=== PATIENT | male | born 1970 | race Caucasian/White ===

== ENCOUNTER 2017-07-04 18:29 | Emergency (ER) | payer OTHER ==
[~2017-07-04] VITALS: Ht 175.3 cm; Wt 136.4 kg
[~2017-07-04 18:29] MED LIST: ALDACTAZIDE 25/1 TAB PO; AMOXICILLIN 50500 MG PO; APRESOLINE 25MG25 MG PO; ASPIRIN 81M81 MG/TA2 PO; ASPIRIN E.C. 8181 MG PO; ATENOLOL50 MG PO; BYSTOLIC10 MG PO; COREG 6.256.25 MG/TA PO; DYRENIUM 50MG C50 MG PO; FIORICET 325 MG1 TAB PO; FLEXERIL 1010 MG/TAB PO; HCTZ; HCTZ 25MG TAB25 MG PO; LIPITOR 80MG80 MG PO; LISINOPRIL10 MG PO; LORTAB 5/500 501 TAB PO; MAXZIDE-25MG TA1 TAB PO; MOTRIN 800800 MG/TAB PO; NAPROSYN500 MG PO; NORCO 325 MG-51 TAB PO; NORCO 325 MG-7.1 TAB PO; NORMODYNE100 MG PO; NORVASC 10MG10 MG PO; PERCOCET 325 MG1 TA2 PO; PHENERGAN 25 TA25 MG PO; PLAVIX 75MG TAB75 MG PO; PRAVACHOL 40MG40 MG PO; PRAVASTATIN20 MG PO; PRINIVIL40 MG PO; TENORMIN 5050 MG/TAB PO; TENORMIN100 MG PO; TRANDATE 100MG100 MG PO; TRIAMTERENE AND1 TAB PO; ULTRAM 50MG TAB50 MG PO; ZESTRIL 20MG TA20 MG PO; ZESTRIL40 MG PO; ZOFRAN8 MG PO
[2017-07-04 18:34] VITALS: TEMP 97.8
[2017-07-04 20:03] VITALS: BP 173/98; PULSE 68
== END 2017-07-04 20:53 | disposition home or self-care (01) ==
LOC: COL.ER 18:29
DX: I10 Essential (primary) hypertension (principal); F17.220 Nicotine dependence, chewing tobacco, uncomplicated; E66.9 Obesity, unspecified; Z68.41 Body mass index [BMI] 40.0-44.9, adult; Z86.73 Personal history of transient ischemic attack (TIA), and cerebral infarction without residual deficits; Z79.82 Long term (current) use of aspirin

== ENCOUNTER 2018-10-09 11:44 | Emergency (ER) | payer SELFPAY ==
[~2018-10-09] VITALS: Ht 175.3 cm; Wt 122.7 kg
[2018-10-09 11:48] VITALS: TEMP 98.9
[2018-10-09 12:17] LABS: HEMATOCRIT 49.1 % (42.0-52.0); HEMOGLOBIN 16.8 g/dl (13.5-18.0); MEAN CELL VOLUME 91 fl (80.0-100.0); MEAN CORPUSCULAR HEMOGLOBIN 31 pg (27.0-31.0); MEAN CORPUSCULAR HGB CONC 34 g/dl (33.0-37.0); MEAN PLATELET VOLUME 10.7 fl (7.4-10.4); PLATELET COUNT 261 K/mm3 (130-400); RED BLOOD COUNT 5.42 M/mm3 (4.20-5.60); REDCELL DISTRIBUTION WIDTH-CV 13.3 % (11.5-14.5)
[2018-10-09] MEDS ORDERED: LIPITOR 80MG80 MG PO (12:17)
[2018-10-09] MEDS ORDERED: PRINZIDE 12.5 M1 TA1 PO (12:17)
[2018-10-09] MEDS ORDERED: BYSTOLIC10 MG PO (12:18)
[2018-10-09 12:23] LABS: ALBUMIN 4.2 gm/dL (3.5-5.0); BILIRUBIN,TOTAL 1.7 mg/dL (0.0-1.0); CALCIUM 9.4 mg/dL (8.4-10.2); CREATININE, serum 1.43 mg/dL (0.66-1.25); POTASSIUM 4.2 mmol/L (3.4-5.0); TOTAL PROTEIN 7.5 gm/dL (6.4-8.2)
[2018-10-09 12:27] LABS: LYMPHOCYTE 6 % (20.0-51.0); NEUTROPHILS 92 % (42.0-75.2); PLATELET ESTIMATE NORMAL (NORMAL)
[2018-10-09] MEDS ORDERED: PHENERGAN 25 TA25 MG PO (13:18)
[2018-10-09 13:45] VITALS: BP 180/112; PULSE 68
== END 2018-10-09 13:52 | disposition home or self-care (01) ==
LOC: COL.ER 11:44
PROVIDERS: Emergency Medicine
DX: K52.9 Noninfective gastroenteritis and colitis, unspecified (principal); I10 Essential (primary) hypertension; Z79.02 Long term (current) use of antithrombotics/antiplatelets; Z79.82 Long term (current) use of aspirin
CPT/HCPCS: J0780; J7030

== ENCOUNTER 2019-02-06 11:57 | Inpatient (IN) | payer SELFPAY ==
[2019-02-06] VITALS (448 sets, daily range): BP systolic 144–186; BP diastolic 97–111; PULSE 73–82; TEMP 98.8–99; O2SAT 82–100
[~2019-02-06] VITALS: Ht 175.3 cm; Wt 128.3 kg
[~2019-02-06 11:57] MED LIST changes: +PRINZIDE 12.5 M1 TA1 PO
[2019-02-06 12:34] LABS: ALBUMIN 3.9 gm/dL (3.5-5.0); BILIRUBIN,TOTAL 1.7 mg/dL (0.0-1.0); CALCIUM 9.2 mg/dL (8.4-10.2); CREATININE, serum 1.48 (0.66-1.25); POTASSIUM 3.6 mmol/L (3.4-5.0); TOTAL PROTEIN 7.1 gm/dL (6.4-8.2)
[2019-02-06 12:47] LABS: INR 1.2 (0.8-3.0); PROTHROMBIN TIME 13.8 SECONDS (9.7-12.8)
[2019-02-06 12:48] LABS: TROPONIN-I 0.062 ng/mL (0.000-0.035)
[2019-02-06 12:49] LABS: BASO % 0.1 % (0.0-2.0); EOS # 0.1 (0.0-0.7); GRAN # 6.4 (1.4-6.5); GRAN % 80.2 % (42.2-75.2); HEMOGLOBIN 14.8 g/dl (13.5-18.0); LYMPH # 0.9 (1.2-3.4); LYMPH % 10.7 % (20.0-51.0); MEAN CELL VOLUME 88 fl (80.0-100.0); MEAN CORPUSCULAR HEMOGLOBIN 31 pg (27.0-31.0); MEAN CORPUSCULAR HGB CONC 35 g/dl (33.0-37.0); MEAN PLATELET VOLUME 10.2 fl (7.4-10.4); MONO # 0.6 (0.1-0.6); MONO % 7.6 % (1.7-9.3); PLATELET COUNT 230 K/mm3 (130-400); RED BLOOD COUNT 4.75 M/mm3 (4.20-5.60); REDCELL DISTRIBUTION WIDTH-CV 13.4 % (11.5-14.5)
[2019-02-06] MEDS ORDERED: PLAVIX 75MG TAB75 MG PO (16:01)
--- NOTE | 2019-02-06 16:29 | NUR ---
Report received from Deloris DENNEY and pt brought to ICU room 3 at 1550. Pt moved over to bed and placed on monitor. TPA and Cardene currently infusing. Pt A/O. Denies any pain. Bleeding noted from oral cavity. Pt coughed per ER report while in CT and began bleeding. Dr Leslie notified. No concerns at this time, will continue to follow.
--- NOTE | 2019-02-06 16:29 | NUR ---
Dr Ruiz at bedside at this time.
--- NOTE | 2019-02-06 16:53 | NUR ---
Dr Leslie in to see pt at this time.
--- NOTE | 2019-02-06 17:58 | NUR ---
Pt resting at this time. Had soft tray for supper and tolerated well. Will continue to follow.
--- NOTE | 2019-02-06 18:40 | NUR ---
Bedside report received from Huong DENNEY. Pt resting in bed at this time.
--- NOTE | 2019-02-06 18:41 | NUR ---
Report given to Ruby DENNEY and care transfered.
[2019-02-07] VITALS (532 sets, daily range): BP systolic 142–167; BP diastolic 82–109; PULSE 61–75; TEMP 98.1–98.9; O2SAT 89–100
--- NOTE | 2019-02-07 07:07 | NUR ---
Report received from Ruby DENNEY and care resumed.
--- NOTE | 2019-02-07 07:10 | NUR ---
Report provided to Huong DENNEY.
--- NOTE | 2019-02-07 08:02 | NUR ---
Dr Ruiz in to see pt at this time.
--- NOTE | 2019-02-07 10:22 | NUR ---
Initial visit; Patient thanked Electric Track Switch Maintainer for looking in on him and keeping him in her prayers.
--- NOTE | 2019-02-07 10:54 | NUR ---
Pt to MRI at this time.
--- NOTE | 2019-02-07 11:30 | NUR ---
Fatmata denny as ordered.
--- NOTE | 2019-02-07 11:32 | NUR ---
SW attended clinical rounding Plan: Patient reports that he plans to return home with his partner Nai Edwards as care support. Assess: SW met with patient, partner, and daughter in the room. Patient reports that he resides in [facility] and denies the use of any DME. Patient indicated that his PCP is Shanna Singer at [facility]. Patient reports that he obtains his medications through [facility] based on a medication program setup through [facility] due to being uninsured. Patient reports having used non profit financial controller [facility] Patient reports that he has a sister in [facility] Shanna that is also a part of his care team . Patient denies having a DPOA and will speak with family on setting on up. Action: SW will assist patient with affordable medication options. SW [facility], SW will needd to follow for speech recommendations and if there are any additonal needs.
--- NOTE | 2019-02-07 15:27 | NUR ---
Report given to Jimbo DENNEY on medical floor. Pt to be taken to room 307 per wheelchair at 1600.
--- NOTE | 2019-02-07 16:23 | NUR ---
Pt taken by wheelchair to room 307 with tele. Family present.
[2019-02-07 17:49] LABS: BASO % 0.3 % (0.0-2.0); EOS # 0.2 (0.0-0.7); EOS % 2.5 % (0-4.0); GRAN # 5.8 (1.4-6.5); GRAN % 72.4 % (42.2-75.2); HEMATOCRIT 43.5 % (42.0-52.0); LYMPH # 1.1 (1.2-3.4); LYMPH % 14.2 % (20.0-51.0); MEAN CELL VOLUME 89 fl (80.0-100.0); MEAN CORPUSCULAR HEMOGLOBIN 31 pg (27.0-31.0); MEAN CORPUSCULAR HGB CONC 35 g/dl (33.0-37.0); MEAN PLATELET VOLUME 10.4 fl (7.4-10.4); MONO # 0.8 (0.1-0.6); MONO % 10.3 % (1.7-9.3); PLATELET COUNT 233 K/mm3 (130-400); REDCELL DISTRIBUTION WIDTH-CV 13.2 % (11.5-14.5)
[2019-02-07 18:01] LABS: CALCIUM 9.5 mg/dL (8.4-10.2); CREATININE, serum 1.57 (0.66-1.25); POTASSIUM 3.5 mmol/L (3.4-5.0)
[2019-02-07 18:15] LABS: TROPONIN-I 0.056 ng/mL (0.000-0.035)
--- NOTE | 2019-02-07 18:15 | NUR ---
Pt up from the ICU this afternoon, settled in MELANIE ruggiero done, initial neuro checks completed with no noticable deficet, talkative and appropriate.
--- NOTE | 2019-02-07 19:04 | NUR ---
Gave report to JUMANA So.
--- NOTE | 2019-02-07 21:03 | NUR ---
Resting in bed. Assessment complete. Lungs clear. Heart sounds normal. Bowels active x4. Pulses strong throughout. No edema noted. Denies pain. Denies any symptoms of stroke. Denies needs at this time. Call light in reach.
--- NOTE | 2019-02-07 23:55 | NUR ---
Resting in bed with daughter at bedside. Call light in reach. Denies pain
[2019-02-08 00:23] VITALS: BP 151/80; PULSE 64; TEMP 98.4
[2019-02-08 04:11] VITALS: BP 124/66; PULSE 71; TEMP 96.8
[2019-02-08 05:38] LABS: BASO % 0.3 % (0.0-2.0); EOS # 0.3 (0.0-0.7); EOS % 3.5 % (0-4.0); GRAN % 66.8 % (42.2-75.2); HEMATOCRIT 40.9 % (42.0-52.0); HEMOGLOBIN 14.2 g/dl (13.5-18.0); LYMPH # 1.4 (1.2-3.4); LYMPH % 18.5 % (20.0-51.0); MEAN CELL VOLUME 90 fl (80.0-100.0); MEAN CORPUSCULAR HEMOGLOBIN 31 pg (27.0-31.0); MEAN CORPUSCULAR HGB CONC 35 g/dl (33.0-37.0); MONO # 0.8 (0.1-0.6); MONO % 10.5 % (1.7-9.3); PLATELET COUNT 209 K/mm3 (130-400); RED BLOOD COUNT 4.56 M/mm3 (4.20-5.60); REDCELL DISTRIBUTION WIDTH-CV 13.3 % (11.5-14.5)
[2019-02-08 05:46] LABS: CREATININE, serum 1.57 (0.66-1.25); POTASSIUM 3.5 mmol/L (3.4-5.0)
--- NOTE | 2019-02-08 06:06 | NUR ---
Patient resting in bed this AM with daughter at bedside. Patient had uneventful night. Denies needs. Call light in reach.
--- NOTE | 2019-02-08 06:51 | NUR ---
Report given to JUMANA Smith
[2019-02-08 07:41] VITALS: BP 161/109; PULSE 65; TEMP 98.3
--- NOTE | 2019-02-08 08:36 | NUR ---
Patient assessment complete and charted. patient sitting in recliner upon entry. Denies chest pain, dizziness, N/V, vision changes. Patient not scoring on stroke scale. Neuro checks are good. patient A&O and independent. "Ready to leave" per patient. Patient is feeling well and has no complaints. Call light within reach, morning medications administered per MAR.
[2019-02-08 11:30] VITALS: BP 156/99; PULSE 65; TEMP 98.3
[2019-02-08] MEDS ORDERED: COREG12.5 MG PO (12:02)
[2019-02-08 15:22] VITALS: BP 149/97; PULSE 67; TEMP 97.5
--- NOTE | 2019-02-08 16:00 | NUR ---
Patient discharged. Discharge instructions discussed and reviewed by JUMANA Pedro with patient. INT IV removed by JUMANA Pedro. All questions answered. No other needs. Escorted out via wheelchair by randi Rodriguez.
== END 2019-02-08 16:15 | disposition home or self-care (01) | DRG 61 ==
LOC: COL.ER 11:57 → ICU 13:26 → MEDICAL 02-07 16:04
PROVIDERS: Emergency Medicine; Physician Assistant
DX: I63.512 Cerebral infarction due to unspecified occlusion or stenosis of left middle cerebral artery (principal); I21.A1 Myocardial infarction type 2; I43 Cardiomyopathy in diseases classified elsewhere; I16.1 Hypertensive emergency; Z68.41 Body mass index [BMI] 40.0-44.9, adult; Z91.14 Patient's other noncompliance with medication regimen; G47.33 Obstructive sleep apnea (adult) (pediatric); I25.10 Atherosclerotic heart disease of native coronary artery without angina pectoris; I11.9 Hypertensive heart disease without heart failure; I25.2 Old myocardial infarction; E78.5 Hyperlipidemia, unspecified; Z88.5 Allergy status to narcotic agent; E66.01 Morbid (severe) obesity due to excess calories; Z72.0 Tobacco use; Z86.73 Personal history of transient ischemic attack (TIA), and cerebral infarction without residual deficits
CPT/HCPCS: 99233-AI; 99239; A9585; J2997; J7030; J7050; Q9967

== ENCOUNTER 2019-04-28 11:28 | Inpatient (IN) | payer SELFPAY ==
[~2019-04-28] VITALS: Ht 175.3 cm; Wt 122.5 kg
[~2019-04-28 11:28] MED LIST changes: +COREG12.5 MG PO
[2019-04-28] MEDS ORDERED: NORVASC 10MG10 MG PO (12:47)
[2019-04-28 13:24] LABS: MEAN CELL VOLUME 89 fl (80.0-100.0); MEAN CORPUSCULAR HEMOGLOBIN 31 pg (27.0-31.0); MEAN CORPUSCULAR HGB CONC 35 g/dl (33.0-37.0); MEAN PLATELET VOLUME 10.8 fl (7.4-10.4); PLATELET COUNT 177 K/mm3 (130-400); RED BLOOD COUNT 4.14 M/mm3 (4.20-5.60); REDCELL DISTRIBUTION WIDTH-CV 13.1 % (11.5-14.5)
[2019-04-28 13:27] LABS: HEMATOCRIT 36.7 % (42.0-52.0)
[2019-04-28 13:31] LABS: ALBUMIN 3.9 gm/dL (3.5-5.0); BILIRUBIN,TOTAL 2.5 mg/dL (0.0-1.0); CREATININE, serum 2.44 (0.66-1.25); POTASSIUM 3.9 mmol/L (3.4-5.0); TOTAL PROTEIN 7.5 gm/dL (6.4-8.2)
[2019-04-28 14:08] LABS: COLLECTION METHOD CLEAN CATCH
[2019-04-28 14:14] LABS: MUCOUS Present /lpf; PH 5 (5-8); SQUAMOUS EPITHELIAL 0-2 /hpf; URINE APPEARANCE Hazy; URINE BACTERIA None Seen /hpf; URINE BILIRUBIN Negative (NEGATIVE); URINE BLOOD 1+ (NEGATIVE); URINE COLOR Amber; URINE GLUCOSE Negative (NEGATIVE); URINE KETONE Negative (NEGATIVE); URINE LEUKOCYTE ESTERASE Negative (NEGATIVE); URINE NITRATE Negative (NEGATIVE); URINE PROTEIN(semi-quant) 1+ (NEGATIVE); URINE RBC 0-2 /hpf; URINE UROBILINOGEN >=4.0 mg/dL (NEGATIVE)
[2019-04-28 14:27] LABS: BAND 4 % (0-10); LYMPHOCYTE 4 % (20.0-51.0); NEUTROPHILS 87 % (42.0-75.2); PLATELET ESTIMATE NORMAL (NORMAL)
--- NOTE | 2019-04-28 16:45 | NUR ---
Pt arrived to room 309 at this time. He is A/O x3. His breathing is even and unlabored on RA. Pt denies SOB. No pain at this time. Pt has no nausea at this time, and is requesting food. Assessment unremarkable with exception to wound on buttock. R inner buttock has edematous, redenned abcess with small amount of drainage. Hardened to touch. Small mepilex applied to bottom. POC discussed with patient and his family who verbalize understanding.
[2019-04-28] MEDS ORDERED: COREG 25MG25 MG/TAB PO (16:48)
[2019-04-28 18:23] VITALS: BP 111/57; PULSE 85; TEMP 99.2
[2019-04-28 18:37] VITALS: BP 11/57; PULSE 79; TEMP 99.2
[2019-04-28 19:14] VITALS: BP 116/68; PULSE 75; TEMP 98.7
[2019-04-28 23:47] VITALS: BP 111/50; PULSE 67; TEMP 99
[2019-04-29 03:08] VITALS: BP 127/69; PULSE 68; TEMP 98.7
[2019-04-29 06:09] LABS: HEMOGLOBIN 12.4 g/dl (13.5-18.0); MEAN CELL VOLUME 90 fl (80.0-100.0); MEAN CORPUSCULAR HEMOGLOBIN 32 pg (27.0-31.0); MEAN CORPUSCULAR HGB CONC 35 g/dl (33.0-37.0); MEAN PLATELET VOLUME 10.7 fl (7.4-10.4); PLATELET COUNT 180 K/mm3 (130-400); RED BLOOD COUNT 3.92 M/mm3 (4.20-5.60); REDCELL DISTRIBUTION WIDTH-CV 13.3 % (11.5-14.5)
[2019-04-29 06:22] LABS: CALCIUM 8.8 mg/dL (8.4-10.2); CREATININE, serum 1.85 (0.66-1.25); POTASSIUM 3.1 mmol/L (3.4-5.0)
--- NOTE | 2019-04-29 06:22 | NUR ---
Vancomycin Initial Dosing Pharmacy Note Ordering provider: Saul Cano MD Indication/duration: BUTTOCK ABSCESS Relevant comorbidities: LABS: WBC 25.7, SCr. 2.4, CrCl 45 Recommendation: 10 MG/KG, BMI 40 Loading dose: VANCOMYCIN 1 gram Maintenance dose: 1.25 grams every 24 hours Trough goal: 10-15 ug/mL, TROUGH 05/01/19 @ 1999
[2019-04-29 06:28] LABS: HEMATOCRIT 35.3 % (42.0-52.0)
[2019-04-29 07:47] LABS: BAND 1 % (0-10); LYMPHOCYTE 11 % (20.0-51.0); NEUTROPHILS 87 % (42.0-75.2); PLATELET ESTIMATE NORMAL (NORMAL); TOXIC GRANULATION PRESENT
[2019-04-29 07:53] VITALS: BP 142/76; PULSE 63; TEMP 98.7
--- NOTE | 2019-04-29 10:40 | NUR ---
Vancomycin Follow-up Pharmacy Note: Adjusting to 1.5 g IV q12h for renal function improvement. Continue to follow daily creatinine and troughs. crea=1.85, est crcl of 59
[2019-04-29 12:00] VITALS: BP 124/64; PULSE 60; TEMP 98.4
--- NOTE | 2019-04-29 14:18 | NUR ---
DORIAN met with the patient and his two daugthers to discuss a discharge plan. The patient lives in [place] with his girlfriend, Nai. The patient is in the process of getting a CPAP and will receive supplies from [facility] and reports independence with ADLs. The patient's PCP is Shanna Singer APRN and pt receives medications from [facility] with no difficulties. The patient has advanced directives in the EMR. The patient plans to return home upon discharge with Nai or one of his daughters providing transportation. The patient is self-pay and filled out a financial assistance form with [facility] financial counselors. There are no additional needs at this time.
[2019-04-29 16:00] VITALS: BP 136/73; PULSE 68; TEMP 98.9
--- NOTE | 2019-04-29 19:43 | NUR ---
Pt had uneventful day. A&O. Pt on room air, VSS throughout day, afebrile. Pt c/o buttock pain and pain "when wiping". Pt has small abcess to buttock, minimal drainage, no dressing to wound, red and warm to touch. Pt had two bowel movements today, specimen collected for GI panel. Stools have been semi soft/loose. Pt has been independent in room. LH IV was bothering patient, didn't appear red or swollen. New IV started, 20g LFA. Abx and fluids running with no complications throughout day. Pt has voiced no other concerns.
[2019-04-29 20:18] VITALS: BP 154/67; PULSE 69; TEMP 99
[2019-04-29 23:37] VITALS: BP 153/86; PULSE 70; TEMP 98.1
--- NOTE | 2019-04-30 01:35 | NUR ---
PT RESTING QUIETLY WITH EYES CLOSED, NO DISTRESS NOTED. CALL LIGHT WITHIN REACH.
[2019-04-30 04:02] VITALS: BP 151/90; PULSE 68; TEMP 98.4
[2019-04-30 07:28] LABS: BASO % 0.2 % (0.0-2.0); EOS # 0.3 (0.0-0.7); EOS % 2.3 % (0-4.0); GRAN % 80.4 % (42.2-75.2); HEMATOCRIT 37.3 % (42.0-52.0); HEMOGLOBIN 12.8 g/dl (13.5-18.0); LYMPH # 0.9 (1.2-3.4); LYMPH % 6.7 % (20.0-51.0); MEAN CELL VOLUME 91 fl (80.0-100.0); MEAN CORPUSCULAR HEMOGLOBIN 31 pg (27.0-31.0); MEAN CORPUSCULAR HGB CONC 34 g/dl (33.0-37.0); MEAN PLATELET VOLUME 10.6 fl (7.4-10.4); MONO # 1.3 (0.1-0.6); MONO % 9.5 % (1.7-9.3); PLATELET COUNT 226 K/mm3 (130-400); REDCELL DISTRIBUTION WIDTH-CV 13.3 % (11.5-14.5)
[2019-04-30 07:36] LABS: CALCIUM 8.7 mg/dL (8.4-10.2); CREATININE, serum 1.24 (0.66-1.25); MAGNESIUM 1.8 mg/dL (1.6-2.3); POTASSIUM 3.2 mmol/L (3.4-5.0)
[2019-04-30 07:48] VITALS: BP 153/93; PULSE 67; TEMP 98.3
[2019-04-30 08:04] LABS: C-REACTIVE PROTEIN 20.7 mg/dL (0.0-0.9)
[2019-04-30 11:56] VITALS: BP 162/84; PULSE 70; TEMP 97.8
--- NOTE | 2019-04-30 14:52 | NUR ---
Pt assessment completed and charted. Pt A&O, independent in room. Denies dizziness, N/V, no reports of diarrhea this shift so far. Denies SOB. Pt reports pain has improved, rating it 1/10. Rt buttock abcess present, small, no drainage, red, hard to touch. Abcess and area have not increased in size. No concerns voiced at this time. Call light within reach.
[2019-04-30 16:15] VITALS: BP 154/94; PULSE 66; TEMP 97.8
--- NOTE | 2019-04-30 18:40 | NUR ---
REPORT RECEIVED FROM RN, CARE OF PT ASSUMED AT THIS TIME. BEDSIDE ROUNDS COMPLETED.
[2019-04-30 19:33] VITALS: BP 154/106; BP 164/83; PULSE 62; TEMP 97.5
--- NOTE | 2019-04-30 21:00 | NUR ---
PT ALERT, OX4, COOPERATIVE. REPORTS SOME DISCOMFORT TO R BUTTOCKS, DENIES NEED FOR INTERVENTION AT THIS TIME. AREA TO BUTTOCKS IS RED AND HARD TO TOUCH WITH SOME SEROSANGUINOUS DRAINAGE NOTED. PT IS WEARING BRIEF D/T DRAINAGE. SMALL AREA OPEN WITH KAYE COLORED MOIST SKIN NOTED. PT DENIES ANY OTHER ISSUES. ASSESSMENT COMPLETED AT THIS TIME. CALL LIGHT WITHIN REACH.
[2019-04-30 23:48] VITALS: BP 142/63; PULSE 65; TEMP 98.7
--- NOTE | 2019-05-01 01:34 | NUR ---
PT RESTING IN BED WITH EYES CLOSED, NO DISTRESS NOTED. CALL LIGHT WITHN REACH.
--- NOTE | 2019-05-01 03:50 | NUR ---
PT RESTING WITH EYES CLOSED, NO DISTRESS NOTED. CALL LIGHT WITHIN REACH.
--- NOTE | 2019-05-01 04:05 | NUR ---
Patient refused 0400 vital signs.
--- NOTE | 2019-05-01 06:20 | NUR ---
PT RESTING QUIETLY WITH EYES CLOSED. HAS DENIED PAIN THROUGH THE NIGHT. REFUSED BP CHECK DURING THE NIGHT. CONTINUES TO CARE FOR SELF INDEPENDENTLY WITHOUT ISSUES. CALL LIGHT WITHIN REACH.
[2019-05-01 07:13] LABS: CREATININE, serum 1.13 (0.66-1.25); POTASSIUM 3.4 mmol/L (3.4-5.0)
--- NOTE | 2019-05-01 07:18 | NUR ---
REPORT GIVEN TO RIAN RN AND SNEHA RN; BEDSIDE ROUNDS COMPLETED. PT DENIES NEEDS.
[2019-05-01 07:25] LABS: C-REACTIVE PROTEIN 14.5 mg/dL (0.0-0.9)
[2019-05-01 07:44] VITALS: BP 166/87; PULSE 56; TEMP 97.7
--- NOTE | 2019-05-01 08:55 | NUR ---
Pt reports increased pain to right buttock following doctor assessing and palpating site, requesting pain medication. PRN pain medication administered per orders. Ice water provided. Pt's daughter at bedside. No further needs reported. Call light in reach.
[2019-05-01 09:06] LABS: HEMATOCRIT 38.5 % (42.0-52.0); MEAN CELL VOLUME 90 fl (80.0-100.0); MEAN CORPUSCULAR HEMOGLOBIN 30 pg (27.0-31.0); MEAN CORPUSCULAR HGB CONC 34 g/dl (33.0-37.0); RED BLOOD COUNT 4.27 M/mm3 (4.20-5.60)
[2019-05-01 09:07] LABS: EOSINOPHIL 4 % (0-4); LYMPHOCYTE 4 % (20.0-51.0); MEAN PLATELET VOLUME 10.9 fl (7.4-10.4); NEUTROPHILS 77 % (42.0-75.2); PLATELET COUNT 255 K/mm3 (130-400); PLATELET ESTIMATE NORMAL (NORMAL); REDCELL DISTRIBUTION WIDTH-CV 13.5 % (11.5-14.5)
[2019-05-01 11:57] VITALS: BP 165/85; PULSE 58; TEMP 97.5
--- NOTE | 2019-05-01 12:01 | NUR ---
Right Buttock to right upper medial thigh hard reddened abcess noted. Bloody drainage coming out onto his pull-up attends. Denies pain. Showered and bed changed. Dr Costa, surgeon was here and plans to I&D abcess later today possibly.
[2019-05-01 16:01] VITALS: BP 149/81; PULSE 66; TEMP 97.7
--- NOTE | 2019-05-01 17:29 | NUR ---
Patient asking when he can go home. Also requesting to skip the midnight vital sign check, agreeing to allowing the 4am vital sign check. Dr Costa, surgeon was in and checked the Right Buttock abcess and will not be doing more I&D of the abcess at this time, since it is softer than before. Patient not be going home tonight.
--- NOTE | 2019-05-01 19:18 | NUR ---
Assessment and notes entered by JUMANA Boyle reviewed and agreed by this nurse.
[2019-05-01 20:41] VITALS: BP 150/72; PULSE 63; TEMP 97.5
--- NOTE | 2019-05-01 20:47 | NUR ---
Resting in bed. Assessment complete. Lungs clear. Heart sounds normal. Bowels active x4. Pulses strong throughout. No edema noted. Right buttock erythema present with minimal purulent, bloody drainage. Denies pain. Denies needs at this time. Call light in reach.
--- NOTE | 2019-05-02 02:14 | NUR ---
Resting in bed asleep.
[2019-05-02 05:01] VITALS: BP 166/95; PULSE 50; TEMP 97.5
--- NOTE | 2019-05-02 06:03 | NUR ---
Patient required x1 dose of norco during night for pain in right buttock. Otherwise uneventful. Requested staff to skip 0000 vital signs to allow for uninterrupted sleeping. Resting in bed this AM. Call light in reach.
[2019-05-02 06:25] LABS: HEMATOCRIT 37.6 % (42.0-52.0); HEMOGLOBIN 12.9 g/dl (13.5-18.0); MEAN CELL VOLUME 89 fl (80.0-100.0); MEAN CORPUSCULAR HEMOGLOBIN 31 pg (27.0-31.0); MEAN CORPUSCULAR HGB CONC 34 g/dl (33.0-37.0); MEAN PLATELET VOLUME 10.3 fl (7.4-10.4); PLATELET COUNT 259 K/mm3 (130-400); RED BLOOD COUNT 4.21 M/mm3 (4.20-5.60); REDCELL DISTRIBUTION WIDTH-CV 13.2 % (11.5-14.5)
[2019-05-02 06:35] LABS: CALCIUM 8.9 mg/dL (8.4-10.2); CREATININE, serum 1.11 (0.66-1.25); POTASSIUM 3.2 mmol/L (3.4-5.0)
--- NOTE | 2019-05-02 07:05 | NUR ---
Report given to JUMANA Salomon
[2019-05-02 08:11] VITALS: BP 166/83; PULSE 65; TEMP 98
--- NOTE | 2019-05-02 08:52 | NUR ---
Pt assessment complete. Pt is sitting up in bed upon entry, he is A/O x3. Pt sitting up in bed watching television. He denies any pain at this time. No N/V present. Pt's breathing is even and unlabored on RA. Pt denies SOB. New briefs provided for wheeping abscess to buttock, bloody drainage present. POC discussed with patient who verbalizes understanding. No needs at this time. Call light within reach.
[2019-05-02 08:55] LABS: BAND 5 % (0-10); EOSINOPHIL 3 % (0-4); LYMPHOCYTE 8 % (20.0-51.0); NEUTROPHILS 75 % (42.0-75.2); PLATELET ESTIMATE NORMAL (NORMAL)
[2019-05-02] MEDS ORDERED: AMOXICILLIN 8751 TAB PO (10:06)
[2019-05-02] MEDS ORDERED: K-DUR20 MEQ PO (10:07)
[2019-05-02] MEDS ORDERED: NORCO 325 MG-51 TAB PO (10:34)
--- NOTE | 2019-05-02 11:36 | NUR ---
Discharge instructions reviewed with patient. All questions answered. IV to LFA dc'd, catheter tip intact. Awaiting ride at this time.
--- NOTE | 2019-05-02 12:30 | NUR ---
Pt wheeled out at this time.
== END 2019-05-02 12:31 | disposition home or self-care (01) | DRG 603 ==
LOC: COL.ER 11:28 → MEDICAL 14:02
PROVIDERS: Emergency Medicine; Nurse Practitioner Family; Physician Assistant; ADMIT Hospitalist
DX: L02.31 Cutaneous abscess of buttock (principal); I69.254 Hemiplegia and hemiparesis following other nontraumatic intracranial hemorrhage affecting left non-dominant side; I42.9 Cardiomyopathy, unspecified; E87.1 Hypo-osmolality and hyponatremia; N17.9 Acute kidney failure, unspecified; I43 Cardiomyopathy in diseases classified elsewhere; Z68.41 Body mass index [BMI] 40.0-44.9, adult; L03.317 Cellulitis of buttock; I13.10 Hypertensive heart and chronic kidney disease without heart failure, with stage 1 through stage 4 chronic kidney disease, or unspecified chronic kidney disease; N18.9 Chronic kidney disease, unspecified; B95.0 Streptococcus, group A, as the cause of diseases classified elsewhere; E87.6 Hypokalemia; I25.10 Atherosclerotic heart disease of native coronary artery without angina pectoris; E66.9 Obesity, unspecified; E78.5 Hyperlipidemia, unspecified; I25.2 Old myocardial infarction; Z79.82 Long term (current) use of aspirin; Z79.02 Long term (current) use of antithrombotics/antiplatelets; Z87.891 Personal history of nicotine dependence; Z88.6 Allergy status to analgesic agent
CPT/HCPCS: 99222-AI; 99232-AI; 99239; A4216; J0690; J0696; J1644; J3370; J7030; J7050

== ENCOUNTER 2019-09-16 09:14 | Emergency (ER) | payer SELFPAY ==
[~2019-09-16] VITALS: Ht 175.3 cm; Wt 122.7 kg
[~2019-09-16 09:14] MED LIST changes: +AMOXICILLIN 8751 TAB PO; +COREG 25MG25 MG/TAB PO; +K-DUR20 MEQ PO
[2019-09-16 09:28] VITALS: TEMP 97.6
[2019-09-16] MEDS ORDERED: PRINZIDE 25 MG-1 TAB PO (09:31)
[2019-09-16] MEDS ORDERED: TAMIFLU 75MG75 MG PO ×2 (09:53→15:39)
[2019-09-16] MEDS ORDERED: NORVASC 5MG5 MG/TAB PO (09:56)
[2019-09-16 11:07] VITALS: BP 223/150; PULSE 67
== END 2019-09-16 11:05 | disposition home or self-care (01) ==
LOC: COL.ER 09:14
DX: I10 Essential (primary) hypertension (principal); I25.10 Atherosclerotic heart disease of native coronary artery without angina pectoris; E78.5 Hyperlipidemia, unspecified; Z20.828 Contact with and (suspected) exposure to other viral communicable diseases; Z90.89 Acquired absence of other organs; Z86.73 Personal history of transient ischemic attack (TIA), and cerebral infarction without residual deficits; Z79.82 Long term (current) use of aspirin; Z79.02 Long term (current) use of antithrombotics/antiplatelets

== ENCOUNTER 2020-04-05 18:02 | Emergency (ER) | payer BC ==
[~2020-04-05] VITALS: Ht 177.8 cm; Wt 122.7 kg
[~2020-04-05 18:02] MED LIST changes: +NORVASC 5MG5 MG/TAB PO; +PRINZIDE 25 MG-1 TAB PO; +TAMIFLU 75MG75 MG PO
[2020-04-05 18:06] VITALS: TEMP 97.7
[2020-04-05 19:05] VITALS: BP 180/98; PULSE 78
== END 2020-04-05 19:07 | disposition home or self-care (01) ==
LOC: COL.ER 18:02
DX: S61.210A Laceration without foreign body of right index finger without damage to nail, initial encounter (principal); I10 Essential (primary) hypertension; E78.5 Hyperlipidemia, unspecified; Z79.02 Long term (current) use of antithrombotics/antiplatelets; Z79.82 Long term (current) use of aspirin; W26.8XXA Contact with other sharp object(s), not elsewhere classified, initial encounter; Y92.009 Unspecified place in unspecified non-institutional (private) residence as the place of occurrence of the external cause

== ENCOUNTER 2021-01-31 20:25 | Emergency (ER) | payer SELFPAY ==
[~2021-01-31] VITALS: Ht 177.8 cm; Wt 138.2 kg
[2021-01-31 20:39] VITALS: TEMP 98.2
[2021-01-31 21:32] LABS: BASO % 0.2 % (0.0-2.0); EOS # 0.2 (0.0-0.7); EOS % 1.8 % (0-4.0); GRAN # 6.7 (1.4-6.5); HEMATOCRIT 43.7 % (42.0-52.0); LYMPH # 1.1 (1.2-3.4); LYMPH % 12.6 % (20.0-51.0); MEAN CELL VOLUME 90 fl (80.0-100.0); MEAN CORPUSCULAR HEMOGLOBIN 31 pg (27.0-31.0); MEAN CORPUSCULAR HGB CONC 34 g/dl (33.0-37.0); MEAN PLATELET VOLUME 10.3 fl (7.4-10.4); MONO # 0.7 (0.1-0.6); MONO % 8.1 % (1.7-9.3); PLATELET COUNT 225 K/mm3 (130-400); RED BLOOD COUNT 4.87 M/mm3 (4.20-5.60); REDCELL DISTRIBUTION WIDTH-CV 13.1 % (11.5-14.5)
[2021-01-31 21:40] LABS: INR 1.1 (0.8-3.0); PROTHROMBIN TIME 12.6 SECONDS (9.7-12.8)
[2021-01-31 22:13] LABS: ALBUMIN 4.1 gm/dL (3.5-5.0); BILIRUBIN,TOTAL 1.3 mg/dL (0.0-1.0); CALCIUM 9.1 mg/dL (8.4-10.2); CREATININE, serum 1.68 (0.66-1.25); POTASSIUM 3.8 mmol/L (3.4-5.0); TOTAL PROTEIN 7.4 gm/dL (6.4-8.2)
[2021-01-31 22:54] VITALS: BP 132/84; PULSE 87
[2021-02-01] MEDS ORDERED: NORVASC 10MG10 MG PO (09:52)
[2021-03-09] MEDS ORDERED: NORVASC 10MG10 MG PO (10:30)
[2021-03-09] MEDS ORDERED: LASIX 40MG TABL40 MG PO (10:32)
[2021-03-09] MEDS ORDERED: COZAAR 50MG50 MG/TAB PO (10:33)
[2021-03-09] MEDS ORDERED: COREG 25MG25 MG/TAB PO (10:34)
[2021-04-12] MEDS ORDERED: PLAVIX 75MG TAB75 MG PO (06:56)
[2021-04-13] MEDS ORDERED: COZAAR100 MG PO (08:10)
== END 2021-01-31 22:54 | disposition left against medical advice (07) ==
LOC: COL.ER 20:25
PROVIDERS: Emergency Medicine
DX: N17.9 Acute kidney failure, unspecified (principal); I10 Essential (primary) hypertension; E78.5 Hyperlipidemia, unspecified; E66.01 Morbid (severe) obesity due to excess calories; I25.2 Old myocardial infarction; Z79.899 Other long term (current) drug therapy; Z79.82 Long term (current) use of aspirin; Z79.02 Long term (current) use of antithrombotics/antiplatelets; Z68.41 Body mass index [BMI] 40.0-44.9, adult
CPT/HCPCS: J7030

== ENCOUNTER 2021-02-01 08:34 | Emergency (ER) | payer SELFPAY ==
[~2021-02-01] VITALS: Ht 177.8 cm; Wt 138.2 kg
[2021-02-01 09:01] VITALS: TEMP 98.2
[2021-02-01 09:27] LABS: BASO % 0.1 % (0.0-2.0); EOS # 0.2 (0.0-0.7); EOS % 2.1 % (0-4.0); GRAN # 6.1 (1.4-6.5); GRAN % 70.3 % (42.2-75.2); HEMATOCRIT 42.4 % (42.0-52.0); HEMOGLOBIN 14.5 g/dl (13.5-18.0); LYMPH # 1.7 (1.2-3.4); LYMPH % 19.9 % (20.0-51.0); MEAN CELL VOLUME 91 fl (80.0-100.0); MEAN CORPUSCULAR HEMOGLOBIN 31 pg (27.0-31.0); MEAN CORPUSCULAR HGB CONC 34 g/dl (33.0-37.0); MEAN PLATELET VOLUME 10.1 fl (7.4-10.4); MONO # 0.6 (0.1-0.6); MONO % 7.3 % (1.7-9.3); PLATELET COUNT 215 K/mm3 (130-400); RED BLOOD COUNT 4.66 M/mm3 (4.20-5.60); REDCELL DISTRIBUTION WIDTH-CV 13.2 % (11.5-14.5)
[2021-02-01 09:33] LABS: INR 1.1 (0.8-3.0); PROTHROMBIN TIME 11.9 SECONDS (9.7-12.8)
[2021-02-01 09:36] LABS: ALBUMIN 3.8 gm/dL (3.5-5.0); BILIRUBIN,TOTAL 0.7 mg/dL (0.0-1.0); CALCIUM 9.1 mg/dL (8.4-10.2); CREATININE, serum 1.49 (0.66-1.25); POTASSIUM 3.8 mmol/L (3.4-5.0); TOTAL PROTEIN 6.8 gm/dL (6.4-8.2)
[2021-02-01] MEDS ORDERED: NORVASC 10MG10 MG PO (09:52)
[2021-02-01 09:55] LABS: TROPONIN-I 0.05 ng/mL (0.000-0.035)
[2021-02-01 10:00] VITALS: BP 154/93; PULSE 69
[2021-03-09] MEDS ORDERED: NORVASC 10MG10 MG PO (10:30)
[2021-03-09] MEDS ORDERED: LASIX 40MG TABL40 MG PO (10:32)
[2021-03-09] MEDS ORDERED: COZAAR 50MG50 MG/TAB PO (10:33)
[2021-03-09] MEDS ORDERED: COREG 25MG25 MG/TAB PO (10:34)
[2021-04-12] MEDS ORDERED: PLAVIX 75MG TAB75 MG PO (06:56)
[2021-04-13] MEDS ORDERED: COZAAR100 MG PO (08:10)
== END 2021-02-01 10:24 | disposition home or self-care (01) ==
LOC: COL.ER 08:34
PROVIDERS: Family Medicine
DX: I11.9 Hypertensive heart disease without heart failure (principal); I43 Cardiomyopathy in diseases classified elsewhere; R74.8 Abnormal levels of other serum enzymes; I25.10 Atherosclerotic heart disease of native coronary artery without angina pectoris; E78.5 Hyperlipidemia, unspecified; E66.01 Morbid (severe) obesity due to excess calories; I25.2 Old myocardial infarction; Z98.61 Coronary angioplasty status; Z68.41 Body mass index [BMI] 40.0-44.9, adult; Z79.82 Long term (current) use of aspirin; Z79.02 Long term (current) use of antithrombotics/antiplatelets; Z79.899 Other long term (current) drug therapy

== ENCOUNTER 2021-09-03 11:54 | Emergency (ER) | payer SELFPAY ==
[~2021-09-03] VITALS: Ht 177.8 cm; Wt 127.3 kg
[~2021-09-03 11:54] MED LIST changes: +COZAAR 50MG50 MG/TAB PO; +COZAAR100 MG PO; +LASIX 40MG TABL40 MG PO
[2021-09-03 12:28] VITALS: PULSE 93; TEMP 98.5
[2021-09-03] MEDS ORDERED: MEDROL 4MG DOSPA4 MG PO (13:52)
[2021-09-03 14:21] VITALS: BP 187/125
== END 2021-09-03 14:55 | disposition home or self-care (01) ==
LOC: COL.ER 11:54
DX: M70.41 Prepatellar bursitis, right knee (principal); I10 Essential (primary) hypertension; I21.4 Non-ST elevation (NSTEMI) myocardial infarction; E78.00 Pure hypercholesterolemia, unspecified; Z98.61 Coronary angioplasty status; Z88.6 Allergy status to analgesic agent; Z79.82 Long term (current) use of aspirin; Z79.02 Long term (current) use of antithrombotics/antiplatelets; Z79.899 Other long term (current) drug therapy
CPT/HCPCS: J7512

== ENCOUNTER 2022-03-22 11:19 | Emergency (ER) | payer SELFPAY ==
[~2022-03-22] VITALS: Ht 177.8 cm; Wt 154.5 kg
[~2022-03-22 11:19] MED LIST changes: +MEDROL 4MG DOSPA4 MG PO
[2022-03-22 11:29] VITALS: TEMP 97.9
[2022-03-22 12:12] LABS: BASO % 0.3 % (0.0-2.0); EOS # 0.1 K/mm3 (0.0-0.7); EOS % 1.8 % (0.0-4.0); GRAN # 5.7 K/mm3 (1.4-6.5); GRAN % 73.2 % (42.2-75.2); HEMATOCRIT 39.9 % (42.0-52.0); HEMOGLOBIN 14.2 g/dl (13.5-18.0); LYMPH # 1.2 K/mm3 (1.2-3.4); LYMPH % 15.1 % (20.0-51.0); MEAN CELL VOLUME 88 fl (80.0-100.0); MEAN CORPUSCULAR HEMOGLOBIN 31 pg (27-31); MEAN CORPUSCULAR HGB CONC 36 g/dl (33.0-37.0); MEAN PLATELET VOLUME 9.9 fl (7.4-10.4); MONO # 0.7 K/mm3 (0.1-0.6); MONO % 9.1 % (1.7-9.3); PLATELET COUNT 215 K/mm3 (130-400); RED BLOOD COUNT 4.56 M/mm3 (4.20-5.60); REDCELL DISTRIBUTION WIDTH-CV 13.9 % (11.5-14.5)
[2022-03-22 12:22] LABS: PROTHROMBIN TIME 11.8 SECONDS (9.7-12.8)
[2022-03-22 12:24] LABS: PARTIAL THROMBOPLASTIN TIME 35.2 SECONDS (26.0-37.0)
[2022-03-22 12:34] LABS: ALBUMIN 3.5 gm/dL (3.5-5.0); BILIRUBIN,TOTAL 0.7 mg/dL (0.2-1.2); CREATININE, serum 1.47 mg/dL (0.72-1.25); POTASSIUM 3.6 mmol/L (3.5-4.5); TOTAL PROTEIN 6.8 gm/dL (6.2-8.1)
[2022-03-22 12:47] LABS: TROPONIN-I 0.043 ng/mL (0.00-0.033)
[2022-03-22 14:15] VITALS: BP 136/111; PULSE 65
== END 2022-03-22 14:25 | disposition left against medical advice (07) ==
LOC: COL.ER 11:19
PROVIDERS: Physician Assistant
DX: R74.8 Abnormal levels of other serum enzymes (principal); Z86.79 Personal history of other diseases of the circulatory system

== ENCOUNTER → 2022-04-15 | Outpatient (CLI) | payer SELFPAY | LOC: COL.VAS 10:30 | DX: I65.23 Occlusion and stenosis of bilateral carotid arteries (principal); I69.398 Other sequelae of cerebral infarction; I10 Essential (primary) hypertension ==

== ENCOUNTER 2022-05-12 08:48 | Emergency (ER) | payer SELFPAY ==
[~2022-05-12] VITALS: Ht 177.8 cm; Wt 143.2 kg
[2022-05-12 08:54] VITALS: BP 146/90; TEMP 97.4
[2022-05-12 11:15] VITALS: PULSE 90
== END 2022-05-12 11:23 | disposition home or self-care (01) ==
LOC: COL.ER 08:48
DX: H54.62 Unqualified visual loss, left eye, normal vision right eye (principal); I10 Essential (primary) hypertension

== ENCOUNTER → 2024-04-16 | Outpatient (CLI) | payer SELFPAY ==
[~2024-04-16] MED LIST changes: +CATAPRES 0.1MG0.1 MG PO; +ELIQUIS 5MG PO; +HYGROTON 2525 MG/TAB PO; +IMDUR 30MG30 MG/TAB PO; +K-DUR 10 MEQ T10 MEQ PO; +LASIX 20MG TABL20 MG PO; +OXYGEN NASAL.CANN; +PACERONE400 MG PO
== END ==
LOC: COL.RAD 14:22
DX: R06.02 Shortness of breath (principal); R05.9 Cough, unspecified; R60.0 Localized edema

== ENCOUNTER 2024-04-22 00:27 | Inpatient (IN) | payer OTHER ==
[2024-04-22] VITALS (16 sets, daily range): BP systolic 85–151; BP diastolic 65–105; PULSE 50–143; TEMP 96.5–99.3
[~2024-04-22] VITALS: Ht 177.8 cm; Wt 153.6 kg
[~2024-04-22 00:27] MED LIST changes: -CATAPRES 0.1MG0.1 MG PO; -ELIQUIS 5MG PO; -HYGROTON 2525 MG/TAB PO; -IMDUR 30MG30 MG/TAB PO; -K-DUR 10 MEQ T10 MEQ PO; -LASIX 20MG TABL20 MG PO; -OXYGEN NASAL.CANN; -PACERONE400 MG PO
[2024-04-22] MEDS ORDERED: dilTIAZem 25 MG/5 ML VIAL IV ONE (01:00)
[2024-04-22] MEDS ORDERED: Magnesium Sulfate 4% 50 ML IV ONE (01:00)
[2024-04-22 01:38] LABS: COLLECTION METHOD CLEAN CATCH
[2024-04-22 01:46] LABS: BASO % 0.4 % (0.0-2.0); EOS # 0.2 K/mm3 (0.0-0.7); EOS % 2.2 % (0.0-4.0); GRAN # 6.5 K/mm3 (1.4-6.5); GRAN % 75.7 % (42.2-75.2); HEMATOCRIT 39.7 % (42.0-52.0); HEMOGLOBIN 12.6 g/dl (13.5-18.0); LYMPH # 1.3 K/mm3 (1.2-3.4); LYMPH % 15.1 % (20.0-51.0); MEAN CELL VOLUME 93 fl (80.0-100.0); MEAN CORPUSCULAR HEMOGLOBIN 30 pg (27-31); MEAN CORPUSCULAR HGB CONC 32 g/dl (33.0-37.0); MEAN PLATELET VOLUME 10.7 fl (7.4-10.4); MONO # 0.6 K/mm3 (0.1-0.6); MONO % 6.4 % (1.7-9.3); PLATELET COUNT 219 K/mm3 (130-400); RED BLOOD COUNT 4.27 M/mm3 (4.20-5.60); REDCELL DISTRIBUTION WIDTH-CV 15.3 % (11.5-14.5)
[2024-04-22 01:53] LABS: PH 5.5 (5.0-8.5); URINE APPEARANCE CLEAR (CLEAR/HAZY); URINE BLOOD NEGATIVE (NEGATIVE); URINE COLOR YELLOW (YELLOW); URINE GLUCOSE NEGATIVE (NEGATIVE); URINE KETONE NEGATIVE (NEGATIVE); URINE NITRATE NEGATIVE (NEGATIVE); URINE PROTEIN(semi-quant) 2+ (NEGATIVE)
[2024-04-22 02:09] LABS: ALBUMIN 3.3 g/dL (3.5-5.0); BILIRUBIN,TOTAL 1.1 mg/dL (0.2-1.2); C-REACTIVE PROTEIN 1.35 mg/dL (0.00-0.50); CALCIUM 9.2 mg/dL (8.4-10.2); CREATININE, serum 2.54 mg/dL (0.72-1.25); POTASSIUM 5.2 mEq/L (3.5-4.5); TOTAL PROTEIN 7.2 g/dl (6.2-8.1)
[2024-04-22 02:31] LABS: TROPONIN-I 0.088 ng/mL (0.00-0.033)
[2024-04-22] MEDS ORDERED: Furosemide 40 MG/4 ML VIAL IV ONE (03:00)
[2024-04-22 03:06] LABS: TSH w REFLEX 2.007 uIU/mL (0.350-4.940)
[2024-04-22] MEDS ORDERED: Acetaminophen 325 MG TAB PO PRN (04:30)
[2024-04-22] MEDS ORDERED: Heparin 5,000 UNITS/ML 1 ML VIAL IV ONE (04:45)
[2024-04-22] MEDS ORDERED: Heparin/D5W 250 ML IV SCH (04:45)
[2024-04-22] MEDS ORDERED: Heparin 5,000 UNITS/ML 1 ML VIAL IV PRN (04:45)
--- NOTE | 2024-04-22 05:18 | NUR ---
PATIENT ARRIVED TO ROOM VIA BED FROM ED. WAS ABLE TO AMBULATE FROM BED INDEPENDANTLY WITHOUT ANY SUPPORTIVE DEVICES. PRESENTLY STABLE ON ROOM AIR. HE IS ALERT AND ORIENTED X4. REPORTS FEELING SHORT OF BREATH WHEN HE LAYS FLAT, ASSISTED IN SITTING UP HEAD OF BED. CARDIZEM DRIP CURRENTLY INFUSING AT 5MG/HR. EDUCATED VISUAL DESIGN LEAD LIGHT USE AND ENSURED CALL LIGHT WITHIN REACH. BED IS LOCKED AND IN LOW POSITION. HOSPITALIST, JOE KIDD APRN CURRENTLY AT BEDSIDE FOR INTAKE
[2024-04-22] MEDS ORDERED: K-DUR 10 MEQ T10 MEQ PO (05:26)
[2024-04-22] MEDS ORDERED: HYGROTON 2525 MG/TAB PO (05:26)
[2024-04-22] MEDS ORDERED: COZAAR100 MG PO (05:26)
[2024-04-22] MEDS ORDERED: CATAPRES 0.1MG0.1 MG PO (05:26)
--- NOTE | 2024-04-22 06:25 | NUR ---
PATIENT STATED OKAY TO GIVE INFORMATION TO DAUGHTER ALENA AND ROOMMATE RIAN
[2024-04-22 06:47] LABS: INR 1.3 (0.8-3.0); PROTHROMBIN TIME 14.1 SECONDS (9.7-12.8)
[2024-04-22 06:49] LABS: PARTIAL THROMBOPLASTIN TIME 31.8 SECONDS (26.0-37.0)
[2024-04-22 07:08] LABS: MAGNESIUM 1.8 mg/dL (1.6-2.6); PHOSPHOROUS 4.2 mg/dL (2.3-4.7)
[2024-04-22] MEDS ORDERED: Carvedilol 25 MG TAB PO SCH (08:00)
[2024-04-22] MEDS ORDERED: Furosemide 40 MG/4 ML VIAL IV SCH (08:00)
[2024-04-22] MEDS ORDERED: amLODIPine 10 MG TAB PO SCH (09:00)
[2024-04-22] MEDS ORDERED: cloNIDine 0.1 MG TAB PO SCH (09:00)
[2024-04-22] MEDS ORDERED: Pantoprazole 40 MG in NS 10 ML IV SCH (09:00)
[2024-04-22] MEDS ORDERED: Clopidogrel 75 MG TAB PO SCH (09:00)
--- NOTE | 2024-04-22 13:09 | NUR ---
bottling room worker met with patient to discuss discharge planning. Patient lives in [place] by himself. Patient's sister, Janell, P# [phone], is listed as patient's primary contact. PCP is Dr. Singer, Pharmacy is [facility]. No issues affording medications. Insurance is [employer]. No previous DPOA-HC, but patient wanted to establish one. SW assisted patient with the paperwork. Patient appointed his sister as primary then his daughter, Arelis as secondary. DORIAN and Heavene witnessed patient's signature. SW made copies, placed copy in chart and provided copies and original to patient. No DME, Patient reports to be independent with ADLS and has a form of transportation to get to and from appointments. Patient would like to return home at time of discharge. Discharge plan: Home
--- NOTE | 2024-04-22 13:47 | NUR ---
HEPARIN BOLUS GIVEN PER A.M. LAB. MID DAY LAB SHOWED CL HIGH HEPARIN 1.35. PER PROTOCOL, HEPARIN DRIP STOPPED AT THIS TIME. PT C/O FEELING SHORT OF AIR. SPO2 ON ROOM AIR 98 PERCENT. LUNGS CTA. HR 70S-80S. PT REASSURED THAT HEART RATE IS GOOD AND OXYGEN SATURATION IS GOOD. WHEN ASKED, PT STATED HE IS SUPPOSED TO USE A CPAP BUT DOESN'T HAVE ONE. PT ENCOURAGED TO CONTACT NURSE IF DYSPNEA WORSENED. CALL LT IN REACH.
--- NOTE | 2024-04-22 16:17 | NUR ---
PT CONTINUES TO C/O OF SHORTNESS OF BREATH, HAS INTERMITTENT BOUTS OF TACHYPNEA. SPO2 REMAINS 95 OR HIGHER, HR IN THE 70S AND 80S. DR. HAMEED CALLED, ORDER RECEIVED FOR 02 2L FOR PATIENT COMFORT. 02 INITIATED VIA N/C AT 2L. PT REASSESSED 15 MINUTES LATER, REPORTS MUCH IMPROVEMENT, REGULATED RESPIRATORY RATE, VERBALIZES THANKS. PT DENIES OTHER NEEDS.
[2024-04-22] MEDS ORDERED: Atorvastatin 80 MG TAB PO SCH (21:00)
--- NOTE | 2024-04-22 21:15 | NUR ---
UPON RT ENTRY OF ROOM, PATIENT SEEMS DYSPNEIC. PT SPO2 ON 3L IS 98%. PT UP ON THE SIDE OF THE BED WITH HANDS ON KNEES. THIS RT ASKED RN ABOUT PT CONDITION AND OF PATIENT MEDICATION. MED [place] APRN ALSO NOTIFIED. WILL CONTINUE TO MONITOR PATIENT FOR ANY WORSENING SYMPTOMS.
--- NOTE | 2024-04-22 21:49 | NUR ---
patient lying in bed, alert and oriented x4. patient SBA transfer to recliner with steady gait. denies chest pain, reports intermittent shortness of breath with noteable quickening of breaths, per request pt placed on o2 per NC, 2039-ELEANOR Rodriguez notified by RT, in to assess pt, o2 sats around 96% on 3L per NC, pt bladder scanned with 60 mL residual noted. +2 pitting edema in BLE. IV in RH and LH patent, sites CDI. heparin gtt running at 20.5 ml/hr, per hepxa rate changed to 19 ml/hr, cardizem gtt running at 5 mg/hr. call light within reach. pt has no further needs, questions or concerns at this time.
[2024-04-23] VITALS (13 sets, daily range): BP systolic 98–110; BP diastolic 72–90; PULSE 64–79; TEMP 97.4–97.6
[2024-04-23 03:22] LABS: BASO % 0.4 % (0.0-2.0); EOS # 0.2 K/mm3 (0.0-0.7); EOS % 2.8 % (0.0-4.0); GRAN # 4.5 K/mm3 (1.4-6.5); GRAN % 66.8 % (42.2-75.2); HEMATOCRIT 38.9 % (42.0-52.0); HEMOGLOBIN 12.3 g/dl (13.5-18.0); LYMPH # 1.4 K/mm3 (1.2-3.4); LYMPH % 21.3 % (20.0-51.0); MEAN CELL VOLUME 94 fl (80.0-100.0); MEAN CORPUSCULAR HEMOGLOBIN 30 pg (27-31); MEAN CORPUSCULAR HGB CONC 32 g/dl (33.0-37.0); MEAN PLATELET VOLUME 10.4 fl (7.4-10.4); MONO # 0.6 K/mm3 (0.1-0.6); MONO % 8.4 % (1.7-9.3); PLATELET COUNT 224 K/mm3 (130-400); RED BLOOD COUNT 4.14 M/mm3 (4.20-5.60); REDCELL DISTRIBUTION WIDTH-CV 15.3 % (11.5-14.5)
[2024-04-23 03:31] LABS: CALCIUM 9.2 mg/dL (8.4-10.2); CREATININE, serum 2.73 mg/dL (0.72-1.25); POTASSIUM 3.7 mEq/L (3.5-4.5)
--- NOTE | 2024-04-23 07:40 | NUR ---
PATIENT ASLEEP RESTING IN BED. PAITENT AROUSES TO NAME, O2 AT 2LNC. PATIENT DENIES ANY NEEDS OR COMPLAINTS AT THIS TIME. CLL LIGHT WITHIN REACH
--- NOTE | 2024-04-23 08:15 | NUR ---
ELSY NOTIFIED OF NEW CONSULT
[2024-04-23] MEDS ORDERED: Nitroglycerin 2% Topical Oint 1 GM UD TD SCH (09:00)
[2024-04-23] MEDS ORDERED: LR 1,000 ML IV SCH (09:30)
--- NOTE | 2024-04-23 11:29 | NUR ---
D: Conference Services Coordinator stopped by room on rounds. A: Pt was resting and content. No needs right now. P: Conference Services Coordinator informed pt that if he needed anything from the infrastructure developer area to let his nurse know. Conference Services Coordinator will follow up as needed.
--- NOTE | 2024-04-23 12:20 | NUR ---
MD NOTIFIED PATIENT COMPLAINING OF INCREASED SOB AND REQUESTING "SOMETHING" FOR THIS. PER MD THIS RN TO PLACE CXR.
--- NOTE | 2024-04-23 13:50 | NUR ---
PATIENT ARRIVED FROM PACU AWAKE ALERT AND ORIENTED , SLIGHLY DROWSY. PATIENT O2 AT 97% ON 3LNC. POST OP VITALS INITATED. Call light within reach. patients family at bedside.
[2024-04-23] MEDS ORDERED: Amiodarone 200 MG TAB PO SCH (13:55)
[2024-04-23] MEDS ORDERED: Apixaban 5 MG TABLET PO SCH (13:56)
[2024-04-23] MEDS ORDERED: Hydrocortisone 1% Cream 30 GM TUBE TP PRN (14:00)
--- NOTE | 2024-04-23 14:04 | NUR ---
PATIENT TOLERATED PROCEDURE WELL. TRANSPORTED TO [facility], FAMILY UPDATED ON ARRIVAL. VITAL SIGNS TAKEN, VSS. TRANSFER OF CARE REPORT TO JUMANA GREER. PATIENT REMAINS ON 3 L/MIN OXYGEN VIA NASAL CANNULA. BED TO LOWEST POSITION, X3 BEDRAILS IN PLACE, CALL LIGHT WITHIN REACH.
--- NOTE | 2024-04-23 14:30 | NUR ---
PATIENT O2 NOTICED TO BE IN THE LOW 80S ON 3LNC. PATIENT IS SLEEPING MOUTH WIDE OPEN, IWHT SNORING INTERMITTENTLY, BREATHS NOTED TO BE AT AN INCONSTSISTENT RATE. PATINET EASILY AWOKEN. P2 NOMCREASED TO BASELINE OF 97 ON 3LNC.
--- NOTE | 2024-04-23 14:39 | NUR ---
THIS RN SPOKE WITH ELSY WEBSTER REGARDING PATIENT. PATIENT DOES NOT NEED AMIO INITATIONS PROTOOL. PATIENT OK TO HAVE AHA DIET WITH NO FR. PATIENT TO STAY FOR DIURESIS. THIS RN WILL INFORM HOSPITALIST TEAM.
--- NOTE | 2024-04-23 22:47 | NUR ---
patient sitting in recliner, alert and oriented x4. denies chest pain and reports feeling occasional shortness of breath, o2 sats around 97% on 2.5L per NC per pt request and comfort. IVs in RH and LH are patent, sites CDI. ambulates with steady gait. +2 pitting edema in BLE, nonpitting edema in BUE noted, no additional remarkable skin findings. call light within reach. pt has no further needs, questions, or concerns at this time.
[2024-04-24] VITALS (11 sets, daily range): BP systolic 87–114; BP diastolic 58–84; PULSE 58–71; TEMP 36.4
[2024-04-24 07:03] LABS: BASO % 0.3 % (0.0-2.0); EOS # 0.1 K/mm3 (0.0-0.7); EOS % 1.8 % (0.0-4.0); GRAN # 5.6 K/mm3 (1.4-6.5); GRAN % 75.9 % (42.2-75.2); HEMATOCRIT 37.6 % (42.0-52.0); HEMOGLOBIN 12.1 g/dl (13.5-18.0); LYMPH % 13.1 % (20.0-51.0); MEAN CELL VOLUME 93 fl (80.0-100.0); MEAN CORPUSCULAR HEMOGLOBIN 30 pg (27-31); MEAN CORPUSCULAR HGB CONC 32 g/dl (33.0-37.0); MEAN PLATELET VOLUME 10.7 fl (7.4-10.4); MONO # 0.6 K/mm3 (0.1-0.6); MONO % 8.6 % (1.7-9.3); PLATELET COUNT 222 K/mm3 (130-400); RED BLOOD COUNT 4.06 M/mm3 (4.20-5.60); REDCELL DISTRIBUTION WIDTH-CV 15.3 % (11.5-14.5)
[2024-04-24 07:26] LABS: CREATININE, serum 3.14 mg/dL (0.72-1.25); POTASSIUM 3.9 mEq/L (3.5-4.5)
[2024-04-24] MEDS ORDERED: Furosemide 40 MG/4 ML VIAL IV SCH (09:00)
--- NOTE | 2024-04-24 10:17 | NUR ---
removed CPAP from room at patients request. Patient states too much pressure to sleep. He refused to give it a try tonight.
[2024-04-24 11:10] LABS: COLLECTION METHOD CLEAN CATCH
[2024-04-24 11:27] LABS: URINE APPEARANCE CLEAR (CLEAR/HAZY); URINE BLOOD NEGATIVE (NEGATIVE); URINE COLOR YELLOW (YELLOW); URINE GLUCOSE NEGATIVE (NEGATIVE); URINE KETONE NEGATIVE (NEGATIVE); URINE NITRATE NEGATIVE (NEGATIVE); URINE PROTEIN(semi-quant) 1+ (NEGATIVE)
[2024-04-25] VITALS (12 sets, daily range): BP systolic 96–207; BP diastolic 46–87; PULSE 57–69; TEMP 97.4–98.4
--- NOTE | 2024-04-25 00:26 | NUR ---
patient lying in bed, alert and oriented x4. denies chest pain. reports intermittent shortness of breath when falling asleep.RT performing sleep oxygen study at this time, oxygen adjusted as needed. IVs in RH and LH are patent, sites CDI. BLE +3 pitting edema with natan hose on, BUE with nonpitting edema noted. ambulating with steady gait. call light within reach. pt has no further needs, questions or concerns at this time.
[2024-04-25 06:36] LABS: BASO % 0.5 % (0.0-2.0); EOS # 0.1 K/mm3 (0.0-0.7); EOS % 1.4 % (0.0-4.0); GRAN # 4.9 K/mm3 (1.4-6.5); GRAN % 73.3 % (42.2-75.2); HEMATOCRIT 38.2 % (42.0-52.0); HEMOGLOBIN 12.3 g/dl (13.5-18.0); LYMPH % 15.6 % (20.0-51.0); MEAN CELL VOLUME 92 fl (80.0-100.0); MEAN CORPUSCULAR HEMOGLOBIN 30 pg (27-31); MEAN CORPUSCULAR HGB CONC 32 g/dl (33.0-37.0); MEAN PLATELET VOLUME 10.8 fl (7.4-10.4); MONO # 0.6 K/mm3 (0.1-0.6); MONO % 8.9 % (1.7-9.3); PLATELET COUNT 198 K/mm3 (130-400); RED BLOOD COUNT 4.14 M/mm3 (4.20-5.60); REDCELL DISTRIBUTION WIDTH-CV 15.3 % (11.5-14.5)
[2024-04-25 06:56] LABS: CALCIUM 8.9 mg/dL (8.4-10.2); CREATININE, serum 3.15 mg/dL (0.72-1.25); POTASSIUM 3.5 mEq/L (3.5-4.5)
--- NOTE | 2024-04-25 08:00 | NUR ---
Patient sitting up on the side of the bed, alert and oriented x 4, denies any pain or discomfort. Getting 2-3L O2 NC for comfort. Assessment completed. No further needs at this time. Call light within reach.
[2024-04-25] MEDS ORDERED: OXYGEN NASAL.CANN (10:05)
[2024-04-25] MEDS ORDERED: ELIQUIS 5MG PO (10:07)
[2024-04-25] MEDS ORDERED: PACERONE400 MG PO (10:09)
[2024-04-25] MEDS ORDERED: IMDUR 30MG30 MG/TAB PO (10:57)
--- NOTE | 2024-04-25 16:06 | NUR ---
Wrapper Layer attended clinical rounds with the team and PT/OT ordered as Cardiology was concerned with patient returning home. SW met with patient who is concerned about how long he will have to be off work. SW provided [facility] Resource Guide along with information about [employer] program. Patient also needs nighttime oxygen and chose [facility] as his supplier. DORIAN contacted [facility] [facility] and sent clinicals and prescription for oxygen. DORIAN followed up after PT eval to discuss possible outpatient PT/OT. Patient is agreeable to be set up at [facility].
[2024-04-26] VITALS (13 sets, daily range): BP systolic 120–148; BP diastolic 82–99; PULSE 55–60; TEMP 97.6–99.4
--- NOTE | 2024-04-26 00:53 | NUR ---
patient sitting in recliner, alert and oriented x4. denies chest pain and reports occasional shortness of breath. IV in RH is patent, site CDi. BLE +2 pitting edema, TEDs applied. BUE with nonpitting edema. ambulates with steady gait. call light within reach. pt has no further needs, questions or concerns at this time. nitro oint changed and placed on left chest.
--- NOTE | 2024-04-26 06:45 | NUR ---
up in recliner and appears to be sleeping, bedside shift report received from JUMANA Samuel
--- NOTE | 2024-04-26 08:00 | NUR ---
awake now and resting in chair, denies needs at this time
--- NOTE | 2024-04-26 08:30 | NUR ---
awke and visiting with , full assessment completed, see interventions for further info, telehealth visit with Dr Aiken completed,
[2024-04-26 08:52] LABS: BASO % 0.2 % (0.0-2.0); EOS # 0.1 K/mm3 (0.0-0.7); EOS % 1.4 % (0.0-4.0); GRAN # 6.2 K/mm3 (1.4-6.5); GRAN % 72.2 % (42.2-75.2); HEMATOCRIT 38.9 % (42.0-52.0); HEMOGLOBIN 12.4 g/dl (13.5-18.0); LYMPH # 1.2 K/mm3 (1.2-3.4); LYMPH % 14.1 % (20.0-51.0); MEAN CELL VOLUME 93 fl (80.0-100.0); MEAN CORPUSCULAR HEMOGLOBIN 30 pg (27-31); MEAN CORPUSCULAR HGB CONC 32 g/dl (33.0-37.0); MEAN PLATELET VOLUME 10.4 fl (7.4-10.4); MONO % 11.9 % (1.7-9.3); PLATELET COUNT 204 K/mm3 (130-400); RED BLOOD COUNT 4.18 M/mm3 (4.20-5.60); REDCELL DISTRIBUTION WIDTH-CV 15.3 % (11.5-14.5)
[2024-04-26] MEDS ORDERED: LASIX 20MG TABL20 MG PO (08:58)
[2024-04-26 09:17] LABS: CALCIUM 8.7 mg/dL (8.4-10.2); CREATININE, serum 2.91 mg/dL (0.72-1.25)
--- NOTE | 2024-04-26 10:11 | NUR ---
up in chair having breakfast, denies needs
--- NOTE | 2024-04-26 10:56 | NUR ---
SITTING ON ra IS 94% SPO2 STANDING ON RA IS 95% 50 FT ON RA IS 98% 100 FT ON RA IS 94% 150 FT ON RA IS 95% 200 FT ON RA IS 97%
--- NOTE | 2024-04-26 12:40 | NUR ---
remains up in chair, visiting with family, had lunch and tolerated well, denies needs
--- NOTE | 2024-04-26 14:12 | NUR ---
bedside shift report given to JUMANA Sanchez
--- NOTE | 2024-04-26 14:15 | NUR ---
PATIENT AWAKE AND ALERT, SITTING UP IN RECLINER. PATIENT DENIES ANY NEEDS OR COMPLAINTS AT THIS TIME. CALL LIGHT MACY GARRETT.
--- NOTE | 2024-04-26 16:08 | NUR ---
Video Game Developer contacted [facility] and scheduled outpatient PT/OT for patient. Appointments were provided to nursing unit coordinator who included them inpatient's discharge orders. PT 05/13/24 0800, OT 05/15/24 0845. DORIAN Schneider faxed referral and orders. DORIAN contacted [facility] and patient's nighttime oxygen will not be covered by patient's insurance due to the diagnosis of obstructive sleep apnea and need for outpatient sleep study. Patient is agreeable to private pay and spouse, Idalia reported she has the funds. DORIAN did offer to contact [facility] who will not require payment up front however they decided to proceed with [facility]. [place] [facility] advised they will deliver oxygen to the home at time of discharge. Life Vest has still not been delivered. Cardiology initiated the referral. DORIAN contacted [facility] and was advised the Life Vest was approved and that they would have local rep call DORIAN. As of 1599, DORIAN had no message from [employer]. Patient has a follow up with his primary care provider, Selene next week and will be set up for an outpatient sleep study. Discharge Plan; Home with outpatient PT/OT and night time oxygen
--- NOTE | 2024-04-26 16:46 | NUR ---
FIONA UPDATED BY . STILL AWAITING LIFE VEST, PATIENT AGREEABLE TO STAY UNTIL ITS ARRIVAL.
--- NOTE | 2024-04-26 21:14 | NUR ---
SHIFT ASSESSMENT COMPLETED AT THIS TIME. PT A&OX4. PT DENIES SOB, NAUSEA, CHEST PAIN. PT VOICES CONCERN OF WANTING CHOCOLATE BUT ITS NOT ALLOWED IN HIS DIET. EVENING SCHEDULED MEDICATIONS ADMINISTERED AT THIS TIME WITHOUT COMPLICATIONS. INT TO RIGHT HAND WITH NEO WRAP. PT HAS NO QUESTIONS OR FURTHER NEEDS AT THIS TIME. CALL LIGHT WITHIN REACH.
[2024-04-27 00:41] VITALS: BP_SYST 120
[2024-04-27 04:01] VITALS: BP 137/82; PULSE 57; TEMP 97.9
[2024-04-27 04:33] VITALS: BP_SYST 137
--- NOTE | 2024-04-27 07:03 | NUR ---
MD CONTACTED THAT PER PATIENT LIFE VEST REP HAS BEEN MESSAGING WITH HIM, AND WILL BE HERE AT 730AM. PATIENT WANTING TO DISCHARGE KING ONCE LIFE VEST ARRIVED. DISCHARGE NOT YET FINALIZED. MD TO PLACE ORDERS.
[2024-04-27 07:25] VITALS: BP 130/86; PULSE 57; TEMP 98
--- NOTE | 2024-04-27 07:30 | NUR ---
LIFE VEST REP PRESENT AT BEDSIDE. PATEINT GIVEN DISCHARGE INSTRUCTIONS AND EDUCATION. IV AND TELE RMEOVED.
--- NOTE | 2024-04-27 08:54 | NUR ---
SW notified that patient is ready for discharge to home today. Life vest delivered and fitted by Zold[facility] mccormick at 0730 this morning per JUMANA Sanchez report. Discharge orders and clinica updates faxed to [facility]. Prescription for nighttime oxgyen and clinicals faxed to [facility]. [facility] notified of patient's discharge to enable them to deliver oxygen to patient's home today. Patient notified of oxygen delivery today. Discharge plan: Home with OP therapy
--- NOTE | 2024-04-27 09:15 | NUR ---
PATIENT GIVEN PAPER SCRIPT FOR O2 AND PT/OT. PATIENT WITH LIFEVEST ON. PATIETNT TAKEN VIA WHEELCHAIR TO ER ENTRANCE WHERE HE LEFT INSTABLE CONDITION WITH HIS ROOMATE.
[2024-04-30] MEDS ORDERED: Amiodarone 200 MG TAB PO SCH (21:00)
[2024-05-08] MEDS ORDERED: Amiodarone 200 MG TAB PO SCH (09:00)
== END 2024-04-27 09:30 | disposition home or self-care (01) | DRG 308 ==
LOC: COL.ER 00:27 → MEDICAL 04:29
PROVIDERS: Emergency Medicine; Internal Medicine Nephrology; Nurse Practitioner Family; Physician Assistant; ADMIT Internal Medicine
DX: I48.91 Unspecified atrial fibrillation (principal); I50.21 Acute systolic (congestive) heart failure; N17.9 Acute kidney failure, unspecified; R65.10 Systemic inflammatory response syndrome (SIRS) of non-infectious origin without acute organ dysfunction; Z68.42 Body mass index [BMI] 45.0-49.9, adult; N18.9 Chronic kidney disease, unspecified; I95.9 Hypotension, unspecified; R06.01 Orthopnea; I25.10 Atherosclerotic heart disease of native coronary artery without angina pectoris; Z95.5 Presence of coronary angioplasty implant and graft; E87.5 Hyperkalemia; D64.9 Anemia, unspecified; G47.33 Obstructive sleep apnea (adult) (pediatric); G47.34 Idiopathic sleep related nonobstructive alveolar hypoventilation; E78.5 Hyperlipidemia, unspecified; R73.9 Hyperglycemia, unspecified; Z86.73 Personal history of transient ischemic attack (TIA), and cerebral infarction without residual deficits; E66.01 Morbid (severe) obesity due to excess calories
CPT/HCPCS: J1644; J1940; J2470; J2543; J2704; J3475; Q3014

== ENCOUNTER 2024-05-13 10:14 | Emergency (ER) | payer OTHER ==
[~2024-05-13] VITALS: Ht 177.8 cm; Wt 127.3 kg
[~2024-05-13 10:14] MED LIST changes: +CATAPRES 0.1MG0.1 MG PO; +ELIQUIS 5MG PO; +HYGROTON 2525 MG/TAB PO; +IMDUR 30MG30 MG/TAB PO; +K-DUR 10 MEQ T10 MEQ PO; +LASIX 20MG TABL20 MG PO; +OXYGEN NASAL.CANN; +PACERONE400 MG PO
[2024-05-13 10:21] VITALS: TEMP 97.8
[2024-05-13 11:03] LABS: BASO % 0.5 % (0.0-2.0); EOS # 0.2 K/mm3 (0.0-0.7); EOS % 2.7 % (0.0-4.0); GRAN # 4.4 K/mm3 (1.4-6.5); GRAN % 68.8 % (42.2-75.2); HEMATOCRIT 39.6 % (42.0-52.0); HEMOGLOBIN 12.9 g/dl (13.5-18.0); LYMPH # 1.1 K/mm3 (1.2-3.4); LYMPH % 16.7 % (20.0-51.0); MEAN CELL VOLUME 91 fl (80.0-100.0); MEAN CORPUSCULAR HEMOGLOBIN 30 pg (27-31); MEAN CORPUSCULAR HGB CONC 33 g/dl (33.0-37.0); MEAN PLATELET VOLUME 10.5 fl (7.4-10.4); MONO # 0.7 K/mm3 (0.1-0.6); MONO % 11.1 % (1.7-9.3); PLATELET COUNT 203 K/mm3 (130-400); RED BLOOD COUNT 4.35 M/mm3 (4.20-5.60); REDCELL DISTRIBUTION WIDTH-CV 14.8 % (11.5-14.5)
[2024-05-13 11:08] LABS: INR 1.9 (0.8-3.0); PROTHROMBIN TIME 20.5 SECONDS (9.7-12.8)
[2024-05-13 11:11] LABS: PARTIAL THROMBOPLASTIN TIME 38.6 SECONDS (26.0-37.0)
[2024-05-13 11:24] LABS: ALBUMIN 3.8 g/dL (3.5-5.0); BILIRUBIN,TOTAL 1.1 mg/dL (0.2-1.2); CALCIUM 9.5 mg/dL (8.4-10.2); CREATININE, serum 2.6 mg/dL (0.72-1.25); MAGNESIUM 2.1 mg/dL (1.6-2.6); POTASSIUM 4.2 mEq/L (3.5-4.5); TOTAL PROTEIN 6.9 g/dl (6.2-8.1)
[2024-05-13 11:56] LABS: TROPONIN-I 0.051 ng/mL (0.00-0.033)
[2024-05-13 13:23] VITALS: BP 140/93; PULSE 60
== END 2024-05-13 13:24 | disposition home or self-care (01) ==
LOC: COL.ER 10:14
PROVIDERS: Family Medicine
DX: R42 Dizziness and giddiness (principal); I48.91 Unspecified atrial fibrillation; Z90.49 Acquired absence of other specified parts of digestive tract; Z79.01 Long term (current) use of anticoagulants